=== PATIENT | female | born 1965 | race Caucasian/White ===

== ENCOUNTER 2021-12-28 01:57 | Emergency (ER) | payer MEDICAID, OTHER ==
[~2021-12-28] VITALS: Ht 152.4 cm; Wt 72.7 kg
[~2021-12-28 01:57] MED LIST: HYDR25TA PO; PROP10TA73 PO
[2021-12-28 03:09] VITALS: BP 135/71
[2021-12-28] MEDS ORDERED: TraMADol HCL 50 MG TABLET PO ONE (03:15)
== END 2021-12-28 03:30 | disposition home or self-care (01) ==
LOC: EMS 02:01
DX: M79.632 Pain in left forearm (principal); E78.00 Pure hypercholesterolemia, unspecified; F32.9 Major depressive disorder, single episode, unspecified; F17.210 Nicotine dependence, cigarettes, uncomplicated; I10 Essential (primary) hypertension; Z90.49 Acquired absence of other specified parts of digestive tract
CPT/HCPCS: 99283